=== PATIENT | female | born 1995 | race Two or more races ===

== ENCOUNTER 2024-04-12 05:08 | Inpatient (IN) | payer OTHER ==
[~2024-04-12] VITALS: Ht 172.7 cm; Wt 72.1 kg
[2024-04-12] VITALS (8 sets, daily range): BP systolic 118–140; BP diastolic 77–88
[2024-04-12] MEDS ORDERED: PRENATAL TABLE1 EAC1 PO (06:37)
[2024-04-12 06:50] LABS: PH,URINE 5.5 (5.0-8.0); URINE APPEARANCE Clear; URINE BILIRRUBIN Negative (NEGATIVE); URINE BLOOD Small; URINE COLOR Yellow; URINE KETONE Negative (NEGATIVE); URINE LEUKOCYTE Trace; URINE NITRATE Negative; URINE PROTEIN Negative (NEGATIVE); URINE UROBILINOGEN 0.2 E.U./dl
[2024-04-12 06:51] LABS: URINE BACTERIA 2242.6 uL (0.0-1933); URINE EPITHELIAL CELLS 115.4 uL (0.0-38.8)
[2024-04-12 06:55] LABS: HEMATOCRIT 35.6 % (36.0-45.00); HEMOGLOBIN 11.8 g/dL (12.0-15.00); MEAN CELL VOLUME 78.7 fL (80.00-100.00); MEAN CORPUSCULAR HGB CONC 33.1 g/dl (32.0-36.0); PLATELET COUNT 253 K/uL (150-450); RED BLOOD COUNT 4.52 M/uL (4.00-6.00); RED CELL DISTRIBUTION WIDTH 16.9 % (11.5-14.5)
[2024-04-12] MEDS ORDERED: RINGERS SOLUTION,LACTATED 1,000 ML IV SCH (07:00)
[2024-04-12 07:11] LABS: URINE CAST 0.76 uL (0.0-1.40); URINE GLUCOSE 250 MG/DL (NEGATIVE); URINE RBC 0.7 uL (0.0-20.8)
[2024-04-12 07:12] LABS: INR < 0.93; PROTHROMBIN TIME 10.2 SECONDS (9.0-11.5)
[2024-04-12] MEDS ORDERED: OXYTOCIN 20 UNITS/500ML RL PIGGYBAG IV SCH (12:30)
[2024-04-12] MEDS ORDERED: OXYTOCIN 1,000 ML IV SCH (18:00)
[2024-04-12] MEDS ORDERED: LIDOCAINE HCL 1% 10ML VIAL IJ ONE (18:00)
[2024-04-12] MEDS ORDERED: ERYTHROMYCIN BASE OPHT 1GM EACH TUBE OP ONE (18:00)
[2024-04-12] MEDS ORDERED: CHLORHEXIDINE GLUCONATE 120 ML BOTTLE TOP SCH (18:00)
[2024-04-12] MEDS ORDERED: ACETAMINOPHEN 500 MG GEL..CAP PO PRN (18:00)
[2024-04-12 21:17] LABS: HEMATOCRIT 34.5 % (36.0-45.00); HEMOGLOBIN 11.2 g/dL (12.0-15.00); MEAN CELL VOLUME 79.6 fL (80.00-100.00); MEAN CORPUSCULAR HEMOGLOBIN 25.8 pg (27.00-32.0); MEAN CORPUSCULAR HGB CONC 32.4 g/dl (32.0-36.0); PLATELET COUNT 229 K/uL (150-450); RED BLOOD COUNT 4.33 M/uL (4.00-6.00); RED CELL DISTRIBUTION WIDTH 16.4 % (11.5-14.5)
[2024-04-13 01:40] VITALS: BP 122/84
[2024-04-13 08:19] VITALS: BP 118/84
[2024-04-13] MEDS ORDERED: PNV,CALCIUM 72/IRON/FOLIC ACID 1 TAB TABLET PO SCH (09:00)
[2024-04-13 16:09] VITALS: BP 125/79
[2024-04-14 00:09] VITALS: BP 130/80
[2024-04-14 08:19] VITALS: BP 121/84
[2024-04-14 13:52] VITALS: BP 131/88
== END 2024-04-14 14:11 | disposition home or self-care (01) | DRG 807 ==
LOC: LDR 05:08 → OB/GYN 05:08
PROVIDERS: ADMIT Obstetrics & Gynecology; ATTEND Obstetrics & Gynecology
PROC: 10E0XZZ Delivery of Products of Conception, External Approach (ICD-10-PCS; principal; 2024-04-12)
PROC: 0W8NXZZ Division of Female Perineum, External Approach (ICD-10-PCS; 2024-04-12)
PROC: 4A1HXCZ Monitoring of Products of Conception, Cardiac Rate, External Approach (ICD-10-PCS; 2024-04-12)
DX: O80 Encounter for full-term uncomplicated delivery (principal); Z37.0 Single live birth; Z3A.39 39 weeks gestation of pregnancy; Z20.822 Contact with and (suspected) exposure to COVID-19